=== PATIENT | male | born 1965 | race African-American/Black ===

== ENCOUNTER 2017-05-11 03:00 | Emergency (ER) | payer MEDICAID | END 2017-05-11 04:40 | disposition left against medical advice (07) | LOC: ER 03:00 | DX: M54.5 Low back pain (principal); Z53.21 Procedure and treatment not carried out due to patient leaving prior to being seen by health care provider ==

== ENCOUNTER 2017-05-11 10:48 | Emergency (ER) | payer MEDICAID ==
[~2017-05-11] VITALS: Ht 175.3 cm; Wt 100.0 kg
[2017-05-12 00:45] VITALS: BP 128/76
== END 2017-05-12 00:47 | disposition home or self-care (01) ==
LOC: ER 10:48
DX: M54.5 Low back pain (principal); F17.200 Nicotine dependence, unspecified, uncomplicated; Z79.82 Long term (current) use of aspirin
CPT/HCPCS: 99283

== ENCOUNTER 2017-05-15 05:54 | Emergency (ER) | payer MEDICAID ==
[~2017-05-15] VITALS: Ht 175.3 cm; Wt 100.0 kg
[2017-05-15] MEDS ORDERED: IBUPROFEN 800MG TABLET PO ONE (07:45)
[2017-05-15 09:01] LABS: CLARITY URINE CLEAR (CLEAR); COLOR URINE YELLOW (YELLOW); KETONES URINE NEGATIVE (NEGATIVE); LEUKOCYTE ESTERASE URINE NEGATIVE (NEGATIVE); NITRITE URINE NEGATIVE (NEGATIVE); OCCULT BLOOD URINE NEGATIVE (NEGATIVE); PROTEIN URINE NEGATIVE (NEGATIVE); SPECIFIC GRAVITY URINE 1.029 (1.005-1.030)
[2017-05-15 11:31] VITALS: BP 131/61
== END 2017-05-15 11:38 | disposition home or self-care (01) ==
LOC: ER 06:16
DX: M54.5 Low back pain (principal); G89.29 Other chronic pain
CPT/HCPCS: 81003; 99283; Z7610

== ENCOUNTER 2018-10-09 01:46 | Emergency (ER) | payer MEDICAID ==
[~2018-10-09] VITALS: Ht 172.7 cm; Wt 95.0 kg
[2018-10-09] MEDS ORDERED: HYDROCODONE/ACETAMINOPHEN 5/325MG TABLET PO ONE (04:15)
[2018-10-09 07:19] VITALS: BP 131/83
== END 2018-10-09 07:21 | disposition home or self-care (01) ==
LOC: ER 01:46
DX: M79.671 Pain in right foot (principal)
CPT/HCPCS: 73630; 99283

== ENCOUNTER 2018-11-27 19:29 | Inpatient (IN) | payer MEDICAID ==
[~2018-11-27] VITALS: Ht 175.3 cm; Wt 95.8 kg
[2018-11-27] MEDS ORDERED: IPRATROPIUM BROMIDE (0.02%) 0.5MG/2.5ML NEB HHN STA (19:48)
[2018-11-27] MEDS ORDERED: ALBUTEROL (0.083%) 2.5MG/3ML NEB HHN STA (19:48)
[2018-11-27] MEDS ORDERED: MAGNESIUM 2 G PREMIX 50 ML IV STA (19:48)
[2018-11-27] MEDS ORDERED: METHYLPREDNISOLONE SOD SUCC 125 MG/2 ML VIAL IV STA (19:48)
[2018-11-27] MEDS ORDERED: SODIUM CHLORIDE 0.9% 1,000 ML IV ONE (19:49)
[2018-11-27] MEDS ORDERED: ONDANSETRON HCL 4MG/2ML INJ IV ONE (20:30)
[2018-11-27 20:36] LABS: BASOPHILS % 0.7 % (0.0-2.0); EOSINOPHILS % 4.2 % (0.0-5.0); HEMATOCRIT. 44.7 % (42.0-52.0); HEMOGLOBIN. 15.3 g/dL (14.0-18.0); LYMPHOCYTES % 26.1 % (20.0-50.0); MEAN CORPUSCULAR HEMOGLOBIN 29.9 pg (28.0-32.0); MEAN CORPUSCULAR VOLUME 87.2 fL (80.0-94.0); MEAN PLATELET VOLUME 7.4 fl (7.4-10.4); MONOCYTES % 5.1 % (2.0-8.0); NEUTROPHILS % 63.9 % (40.0-76.0); PLATELET 253 x1000/uL (130-400); RED BLOOD CELL COUNT 5.12 mill/uL (4.7-6.1); RED CELL DISTRIBUTION WIDTH 14.1 % (11.6-14.6)
[2018-11-27 20:42] LABS: CHLORIDE 110 mEq/L (98-107); PROTHROMBIN TIME 10.8 sec (9.6-11.0)
[2018-11-27] MEDS ORDERED: LEVOFLOXACIN 500MG PREMIX 100 ML IV ONE (20:45)
[2018-11-27] MEDS ORDERED: AZITHROMYCIN 500 MG in DEXT 5% WATER 250 ML IV NR (23:15)
[2018-11-28 00:33] LABS: CLARITY URINE CLEAR (CLEAR); COLOR URINE YELLOW (YELLOW); KETONES URINE NEGATIVE (NEGATIVE); LEUKOCYTE ESTERASE URINE NEGATIVE (NEGATIVE); NITRITE URINE NEGATIVE (NEGATIVE); OCCULT BLOOD URINE NEGATIVE (NEGATIVE); PROTEIN URINE NEGATIVE (NEGATIVE); SPECIFIC GRAVITY URINE 1.012 (1.005-1.030); UROBILINOGEN URINE 0.2 E.U./dL (0.2-1.0)
[2018-11-28 01:22] LABS: *BARBITURATES SCREEN URINE NEGATIVE (NEGATIVE)
[2018-11-28 01:23] LABS: *AMPHETAMINES SCREEN URINE PRESUMTIVE POSITIVE (NEGATIVE); *COCAINE SCREEN URINE NEGATIVE (NEGATIVE); CANNABINOID URINE SCREEN NEGATIVE (NEGATIVE); METHADONE URINE SCREEN NEGATIVE (NEGATIVE); OPIATES URINE SCREEN NEGATIVE (NEGATIVE); PHENCYCLIDINE URINE SCREEN NEGATIVE (NEGATIVE)
[2018-11-28 01:36] LABS: *BENZODIAZEPINES SCREEN URINE NEGATIVE (NEGATIVE)
[2018-11-28 06:46] VITALS: BP 96/46
[2018-11-28 08:00] VITALS: BP_SYST 111; BP_SYST 112; BP_DIAS 52; BP_DIAS 63
[2018-11-28] MEDS ORDERED: ACETAMINOPHEN 325MG TABLET PO PRN (08:00)
[2018-11-28] MEDS ORDERED: ONDANSETRON HCL 4MG/2ML INJ IV PRN (08:00)
[2018-11-28] MEDS ORDERED: IPRATROPIUM/ALBUTEROL 0.5-3(2.5)MG/3ML NEB HHN PRN (08:00)
[2018-11-28] MEDS ORDERED: CEFTRIAXONE 1 G PREMIX 50 ML IV SCH (08:00)
[2018-11-28] MEDS: METHYLPREDNISOLONE SOD SUCC 40 MG/ML VIAL IV SCH ×3 (09:25→21:58)
[2018-11-28] MEDS: ENOXAPARIN 30MG/0.3ML SYR SUBCUT SCH ×2 (09:25→21:58)
[2018-11-28] MEDS: IPRATROPIUM/ALBUTEROL 0.5-3(2.5)MG/3ML NEB HHN SCH ×4 (09:54→20:06)
[2018-11-28 12:00] VITALS: BP 108/56
[2018-11-28 16:00] VITALS: BP 110/60
[2018-11-28] MEDS: NICOTINE 21MG PATCH TD SCH (16:05)
[2018-11-28] MEDS ORDERED: PNEUMOCOCCAL 23-VAL P-SAC VAC 0.5 ML IM ONE (19:30)
[2018-11-28 20:00] VITALS: BP 120/44
[2018-11-28] MEDS ORDERED: AZITHROMYCIN 500 MG in DEXT 5% WATER 250 ML IV SCH (23:00)
[2018-11-29] VITALS: BP 118/52
[2018-11-29 04:00] VITALS: BP 130/64
[2018-11-29] MEDS: IPRATROPIUM/ALBUTEROL 0.5-3(2.5)MG/3ML NEB HHN SCH ×4 (04:00→13:35)
[2018-11-29] MEDS: METHYLPREDNISOLONE SOD SUCC 40 MG/ML VIAL IV SCH ×2 (05:32→15:23)
[2018-11-29 07:06] LABS: BASOPHILS % 0.1 % (0.0-2.0); HEMATOCRIT. 43.4 % (42.0-52.0); HEMOGLOBIN. 14.7 g/dL (14.0-18.0); LYMPHOCYTES % 9.5 % (20.0-50.0); MEAN CORPUSCULAR HEMOGLOBIN 29.7 pg (28.0-32.0); MEAN CORPUSCULAR VOLUME 87.8 fL (80.0-94.0); MEAN PLATELET VOLUME 8.3 fl (7.4-10.4); MONOCYTES % 3.6 % (2.0-8.0); NEUTROPHILS % 86.8 % (40.0-76.0); PLATELET 281 x1000/uL (130-400); RED BLOOD CELL COUNT 4.95 mill/uL (4.7-6.1); RED CELL DISTRIBUTION WIDTH 14.2 % (11.6-14.6)
[2018-11-29 07:11] LABS: CHLORIDE 106 mEq/L (98-107)
[2018-11-29 07:22] LABS: CREATINE KINASE 104 IU/L (39-308)
[2018-11-29 08:00] VITALS: BP 120/51
[2018-11-29] MEDS: ENOXAPARIN 30MG/0.3ML SYR SUBCUT SCH (08:54)
[2018-11-29] MEDS: NICOTINE 21MG PATCH TD SCH (08:55)
[2018-11-29 12:00] VITALS: BP 116/60
[2018-11-29 12:34] VITALS: BP 116/60
== END 2018-11-29 15:50 | disposition home or self-care (01) | DRG 812 ==
LOC: ER 19:29 → 5WST 20:51 → EDBEDREQTM 20:54 → EDBEDREQ 20:54 → ENRESERV 11-28 01:25 → CANRESERV 11-28 01:25 → ENRESERV 11-28 04:50 → 5WST 11-28 19:54
PROVIDERS: ADMIT Internal Medicine Nephrology; ATTEND Internal Medicine Nephrology
DX: T43.621A Poisoning by amphetamines, accidental (unintentional), initial encounter (principal); J96.01 Acute respiratory failure with hypoxia; J68.0 Bronchitis and pneumonitis due to chemicals, gases, fumes and vapors; R65.10 Systemic inflammatory response syndrome (SIRS) of non-infectious origin without acute organ dysfunction; Y92.89 Other specified places as the place of occurrence of the external cause; F17.210 Nicotine dependence, cigarettes, uncomplicated; F41.9 Anxiety disorder, unspecified; Z71.6 Tobacco abuse counseling; F15.10 Other stimulant abuse, uncomplicated
CPT/HCPCS: 36415; 71045; 80048; 80305; 82550; 82553; 83605; 83880; 84145; 84484; 90732; 93005; 94640; 94644; 96365; 96367; 96375; 99291; 99406; J0456; J0696; J1650; J1956; J2405; J2920; J2930; J3475; J7030; J7060; J7611; J7620

== ENCOUNTER 2019-03-13 19:31 | Emergency (ER) | payer MEDICAID ==
[~2019-03-13] VITALS: Ht 175.3 cm; Wt 96.0 kg
[2019-03-13] MEDS: METOCLOPRAMIDE HCL 10MG/2ML VIAL IV ONE (21:56)
[2019-03-13] MEDS: DIPHENHYDRAMINE 50MG/ML VIAL IV ONE (21:56)
[2019-03-13] MEDS: SODIUM CHLORIDE 0.9% 500 ML IV ONE (21:58)
[2019-03-14 00:34] VITALS: BP 103/57
== END 2019-03-14 00:35 | disposition home or self-care (01) ==
LOC: ER 19:31
DX: G43.909 Migraine, unspecified, not intractable, without status migrainosus (principal); F17.200 Nicotine dependence, unspecified, uncomplicated; J45.909 Unspecified asthma, uncomplicated
CPT/HCPCS: 96374; 96375; 99283; J1200; J2765; J7040; Z7610

== ENCOUNTER 2019-03-31 14:22 | Emergency (ER) | payer MEDICAID ==
[~2019-03-31] VITALS: Ht 175.3 cm; Wt 100.0 kg
[2019-03-31] MEDS ORDERED: ALBUTEROL (0.083%) 2.5MG/3ML NEB HHN ONE ×3 (15:45→17:45)
[2019-03-31] MEDS ORDERED: PREDNISONE 20MG TABLET PO ONE (15:45)
[2019-03-31 18:28] VITALS: BP 137/89
== END 2019-03-31 18:30 | disposition home or self-care (01) ==
LOC: ER 15:34
DX: J45.901 Unspecified asthma with (acute) exacerbation (principal); J06.9 Acute upper respiratory infection, unspecified
CPT/HCPCS: 71045; 94640; 99285; J7512; J7611; Z7610

== ENCOUNTER 2019-04-30 11:02 | Emergency (ER) | payer MEDICAID ==
[~2019-04-30] VITALS: Ht 175.3 cm; Wt 113.0 kg
[2019-04-30] MEDS ORDERED: ACETAMINOPHEN 500MG TABLET PO ONE (13:15)
[2019-04-30] MEDS ORDERED: IBUPROFEN 800MG TABLET PO ONE (13:15)
[2019-04-30 14:37] VITALS: BP 123/81
== END 2019-04-30 14:38 | disposition home or self-care (01) ==
LOC: ER 11:02
DX: M25.561 Pain in right knee (principal); F17.200 Nicotine dependence, unspecified, uncomplicated; Z71.6 Tobacco abuse counseling
CPT/HCPCS: 73560; 99283; 99406